=== PATIENT | male | born 1990 | race Native Hawaiian/Other Pacific Islander ===

== ENCOUNTER 2020-06-09 01:16 | Emergency (ER) | payer OTHER ==
[~2020-06-09] VITALS: Ht 170.2 cm; Wt 68.0 kg
[2020-06-09 01:28] VITALS: BP 117/78
== END 2020-06-09 02:03 | disposition home or self-care (01) ==
LOC: ER 01:20
DX: Z13.89 Encounter for screening for other disorder (principal); Z20.822 Contact with and (suspected) exposure to COVID-19
CPT/HCPCS: 99283; C9803; U0003

== ENCOUNTER 2020-06-20 02:42 | Emergency (ER) | payer OTHER ==
[~2020-06-20] VITALS: Ht 170.2 cm; Wt 68.0 kg
[2020-06-20 02:43] VITALS: BP 119/67
== END 2020-06-20 03:49 | disposition home or self-care (01) ==
LOC: ER 02:43
DX: Z20.822 Contact with and (suspected) exposure to COVID-19 (principal)
CPT/HCPCS: 99283; C9803; U0003

== ENCOUNTER 2020-06-28 23:19 | Emergency (ER) | payer OTHER ==
[~2020-06-28] VITALS: Ht 170.2 cm; Wt 68.0 kg
[2020-06-28 23:21] VITALS: BP 125/86
== END 2020-06-28 23:50 | disposition home or self-care (01) ==
LOC: ER 23:20
DX: Z20.822 Contact with and (suspected) exposure to COVID-19 (principal)
CPT/HCPCS: 99283; C9803; U0003

== ENCOUNTER 2020-07-02 16:40 | Emergency (ER) | payer OTHER ==
[~2020-07-02] VITALS: Ht 170.2 cm; Wt 68.0 kg
[2020-07-02 16:43] VITALS: BP 135/91
--- NOTE | 2020-07-02 16:59 | NUR ---
COVIDM SWAB DONE AND SENT TO LAB
--- NOTE | 2020-07-02 16:59 | NUR ---
Patient discharged to home in stable condition. Written and verbal after care instructions given. Patient verbalizes understanding of instruction. Pt ambulatory with a steady gait
== END 2020-07-02 16:59 | disposition home or self-care (01) ==
LOC: ER 16:42
DX: Z20.822 Contact with and (suspected) exposure to COVID-19 (principal); Z53.8 Procedure and treatment not carried out for other reasons

== ENCOUNTER 2020-07-09 23:43 | Emergency (ER) | payer OTHER ==
[~2020-07-09] VITALS: Ht 170.2 cm; Wt 68.0 kg
[2020-07-09 23:44] VITALS: BP 122/78
--- NOTE | 2020-07-09 23:57 | NUR ---
COVID TEST SENT T
== END 2020-07-09 23:58 | disposition home or self-care (01) ==
LOC: ER 23:45
DX: Z20.822 Contact with and (suspected) exposure to COVID-19 (principal)
CPT/HCPCS: 99283; C9803; U0003

== ENCOUNTER 2020-07-18 04:51 | Emergency (ER) | payer OTHER ==
[~2020-07-18] VITALS: Ht 170.2 cm; Wt 68.0 kg
[2020-07-18 04:52] VITALS: BP 119/69
== END 2020-07-18 05:08 | disposition home or self-care (01) ==
LOC: ER 04:52
DX: Z20.822 Contact with and (suspected) exposure to COVID-19 (principal)
CPT/HCPCS: 99283; C9803; U0003

== ENCOUNTER 2020-07-25 04:17 | Emergency (ER) | payer OTHER ==
[~2020-07-25] VITALS: Ht 170.2 cm; Wt 68.0 kg
[2020-07-25 04:17] VITALS: BP 123/75
== END 2020-07-25 05:12 | disposition home or self-care (01) ==
LOC: ER 04:19
DX: Z20.822 Contact with and (suspected) exposure to COVID-19 (principal)
CPT/HCPCS: 99283; C9803; U0003

== ENCOUNTER 2020-08-08 01:21 | Emergency (ER) | payer OTHER ==
[~2020-08-08] VITALS: Ht 170.2 cm; Wt 68.0 kg
[2020-08-08 01:21] VITALS: BP 123/75
== END 2020-08-08 01:30 | disposition home or self-care (01) ==
LOC: ER 01:21
DX: Z20.822 Contact with and (suspected) exposure to COVID-19 (principal)
CPT/HCPCS: 99283; C9803; U0003

== ENCOUNTER 2020-08-23 02:40 | Emergency (ER) | payer OTHER ==
[~2020-08-23] VITALS: Ht 170.2 cm; Wt 68.0 kg
[2020-08-23 02:41] VITALS: BP 123/65
== END 2020-08-23 03:08 | disposition home or self-care (01) ==
LOC: ER 02:42
DX: Z20.822 Contact with and (suspected) exposure to COVID-19 (principal)
CPT/HCPCS: 99283; C9803; U0003

== ENCOUNTER 2020-09-19 00:01 | Emergency (ER) | payer OTHER ==
[~2020-09-19] VITALS: Ht 170.2 cm; Wt 68.0 kg
[2020-09-19 00:15] VITALS: BP 128/67
== END 2020-09-19 00:28 | disposition home or self-care (01) ==
LOC: ER 00:02
DX: Z20.822 Contact with and (suspected) exposure to COVID-19 (principal)
CPT/HCPCS: 99283; C9803; U0003

== ENCOUNTER 2021-01-08 21:58 | Inpatient (IN) | payer MEDICAID, OTHER ==
[~2021-01-08] VITALS: Ht 167.6 cm; Wt 69.4 kg
--- NOTE | 2021-01-08 22:21 | NUR ---
URINE SENT TO LAB
[2021-01-08] MEDS ORDERED: IV NS 0.9% 1,000 ML BAG IV ONE (22:30)
--- NOTE | 2021-01-08 22:30 | NUR ---
MD AT BEDSIDE ALONG WITH RN FOR CONSENT TO TEST FOR DRUGS AND ALCOHOL AND TO SHARE RESULTS WITH NURSING ADMINISTRATION
[2021-01-08 22:43] LABS: BILIRUBIN,URINE Negative (NEGATIVE); COLOR,URINE YELLOW (YELLOW); LEUKOCYTE ESTERASE ,URINE Negative (NEGATIVE); NITRITE, URINE Negative (NEGATIVE); PH,URINE 5.5 (5.0-8.0); PROTEIN,URINE Negative (NEGATIVE); UGLUCOSE Negative (NEGATIVE); UROBILINOGEN,URINE 0.2 EU/dL (0.2)
[2021-01-08 22:48] LABS: BASOPHILS % (AUTO) 0.6 % (0.0-2.0); EOSINOPHILS % (AUTO) 2.5 % (0.0-6.0); HEMATOCRIT 41 % (39-51); HEMOGLOBIN 13.9 g/dL (13.5-17.5); LYMPHOCYTES # (AUTO) 1.3 K/uL (0.8-4.8); LYMPHOCYTES % (AUTO) 18.4 % (20.0-44.0); MEAN CORPUSCULAR HGB CONC 34 g/dl (31.0-36.0); MEAN CORPUSCULAR VOLUME 95 fL (80-96); MONOCYTES # (AUTO) 0.8 K/uL (0.1-1.30); NEUTROPHILS # (AUTO) 4.6 K/uL (1.8-8.9); NEUTROPHILS % (AUTO) 66.5 % (43.0-81.0); PLATELET COUNT (AUTO) 319 K/uL (150-450); RED BLOOD CELL COUNT(AUTO) 4.32 MIL/uL (4.5-6.0); WHITE BLOOD COUNT (AUTO) 6.9 K/uL (4.3-11.0)
--- NOTE | 2021-01-08 22:50 | NUR ---
PT BIBSELF C/O SYNCOPE AT WORK. PLACED ON MONITOR ON PULSE OX. AMBULATORY WITH NON LABORED BREATHING. -KO
[2021-01-08 23:20] LABS: CHLORIDE 107 mmol/L (98-107); POTASSIUM 3.7 mmol/L (3.5-5.1); SODIUM SERUM 141 mmol/L (136-145)
[2021-01-08 23:21] LABS: CALCIUM, SERUM 8.6 mg/dL (8.5-10.1); CARBON DIOXIDE 25 mmol/L (21-32); CREATININE 1.2 mg/dL (0.6-1.3); GLUCOSE 87 mg/dL (74-106); UREA NITROGEN, BLOOD 20 mg/dL (7-18)
--- NOTE | 2021-01-09 01:12 | NUR ---
CALLED XRAY TO F/U ON CT.
--- NOTE | 2021-01-09 01:20 | NUR ---
BROUGHT TO CT
--- NOTE | 2021-01-09 02:13 | NUR ---
called jose jackson
--- NOTE | 2021-01-09 02:16 | NUR ---
dr hernandez speaking with [place]
--- NOTE | 2021-01-09 02:27 | NUR ---
on speaking to hospitalist, Carter Vallejo.
[2021-01-09] MEDS ORDERED: LEVETIRACETAM (500MG) 500 MG in IV NS 0.9% 100 ML IV SCH (02:30)
[2021-01-09] MEDS ORDERED: LEVETIRACETAM (500MG) 500 MG/5 ML VIAL IV ONE (02:43)
[2021-01-09] MEDS ORDERED: Z GUARD REMEDY 2 OZ OINT TP PRN (03:00)
[2021-01-09] MEDS ORDERED: LORAZEPAM INJ 2 MG/ML VIAL IV PRN (03:00)
[2021-01-09] MEDS ORDERED: MAGNESIUM HYDROXIDE 30 ML UDC PO PRN (03:00)
[2021-01-09] MEDS ORDERED: ONDANSETRON HCL/PF 4 MG/2 ML VIAL IVP PRN (03:00)
--- NOTE | 2021-01-09 04:46 | NUR ---
Patient is resting comfortably in bed with eyes closed. Easily aroused. VSS
[2021-01-09] MEDS ORDERED: LEVE500T9 PO (08:14)
[2021-01-09] MEDS ORDERED: ZOLOFT (08:14)
[2021-01-09] MEDS ORDERED: LORA-259 PO (08:14)
[2021-01-09] MEDS ORDERED: GABA-536 PO (08:14)
[2021-01-09] MEDS ORDERED: PANTOPRAZOLE 40 MG VIAL IV SCH (09:00)
[2021-01-09] MEDS ORDERED: PANTOPRAZOLE 40 MG VIAL ONE (10:18)
--- NOTE | 2021-01-09 10:27 | NUR ---
PATIENT A/OX4, BREATHING EVEN AND UNLABORED, NO SOB NOTED. NEEDS ATTENDED.
--- NOTE | 2021-01-09 13:43 | NUR ---
room 320-1
--- NOTE | 2021-01-09 13:58 | NUR ---
REPORT GIVEN TO PHILIP SHEPHERD. PT AWAITING TRANSFER TO FLOOR.
--- NOTE | 2021-01-09 14:11 | NUR ---
PT TRANSPORTED TO UNIT ON [address] WITH EMT AND RN AT BEDSIDE WITH ACLS PROTOCOL. NAD NOTED DURING TRANSPORT. PT AMBULATED FROM GURNEY TO BED W/O ASSIST.
--- NOTE | 2021-01-09 15:00 | NUR ---
PRISON TEACHERLICENSE REGISTRATION EXAMINER NOTES RECEIVED PATIENT ADMISSION. PT IS ALERT AND ORIENTED X4. NO S/S OF DISTRESS NOTED. NO SOB. BREATHING IS EVEN AND UNLABORED. BODY ASSESSMENT DONE, SKIN IS INTACT. PT IS AN EMPLOYEE AND IS ORIENTED TO UNIT AND STAFF. PLACED EXTERNAL HOTEL ASSOCIATE ON PATIENT. SAFETY MEASURES IMPLEMENTED WITH BED LOCKED AT LOW POSITION AND SIDE RAILS UP X 2. CALL LIGHT IS WITHIN REACH. WILL CONTINUE TO MONITOR THROUGHOUT SHIFT.
[2021-01-09 16:00] VITALS: BP 129/81
[2021-01-09] MEDS: IV NS 0.9% 1,000 ML IV PRN (16:00)
[2021-01-09] MEDS: LEVETIRACETAM (500MG) 500 MG in IV NS 0.9% 100 ML IV SCH (16:00)
--- NOTE | 2021-01-09 19:22 | NUR ---
TELE CLOSING NOTES PATIENT IN IS BED WATCHING TV. NO S/S OF DISTRESS NOTED. NO SOB. NO C/O PAIN. ALL NEEDS MET THROUGHOUT SHIFT. IV ACCESS LFA#20 PATENT AND INTACT WITH NS 0.9% RUNNING AT 75MLS/HR. SAFETY MEASURES MAINTAINED. CALL LIGHT IS WITHIN REACH. WILL ENDORSE CONTINUITY OF CARE TO ONCOMING SHIFT.
[2021-01-09 20:00] VITALS: BP 111/65
--- NOTE | 2021-01-09 20:30 | NUR ---
INSPECTOR AND MENDER OPENING NOTES RECEIVED PT IN BED, WATCHING TV. AOx4. ABLE TO MAKE NEEDS KNOWN. ON RA AND TOLERATING WELL. NO SOB NOTED. NO S/SX OF RESPIRATORY DISTRESS NOTED. NO COMPLAINTS OF CHEST PAIN AT THIS TIME. IV ACCESS LFA#20 PATENT AND RUNNING NS RUNNING AT 75MLS/HR. SAFETY MEASURES IN PLACE: BED IN LOWEST, LOCKED POSITION, BRAKES ON, SIDERAILS UPx2. CALL LIGHT AND TABLE WITHIN REACH. WILL CONTINUE TO MONITOR. Addendum: 01/09/21 at 2033 by SONAL LOGAN RN TELE MONITOR DETECTS SINUS RHYTHM WITH RATE IN 90S.
--- NOTE | 2021-01-09 22:56 | NUR ---
REPORTS RECEIVED FROM CORA CURRY FOR CONTINUITY OF CARE. PATIENT IS ASLEEP AT THIS TIME.
[2021-01-10] VITALS: BP 107/60
[2021-01-10] MEDS: IV NS 0.9% 1,000 ML IV PRN (03:10)
[2021-01-10] MEDS: LEVETIRACETAM (500MG) 500 MG in IV NS 0.9% 100 ML IV SCH (03:10)
[2021-01-10 04:00] VITALS: BP 108/55
[2021-01-10 06:16] LABS: BASOPHILS % (AUTO) 0.6 % (0.0-2.0); EOSINOPHILS % (AUTO) 7.5 % (0.0-6.0); HEMATOCRIT 39 % (39-51); HEMOGLOBIN 13.5 g/dL (13.5-17.5); LYMPHOCYTES # (AUTO) 1.5 K/uL (0.8-4.8); LYMPHOCYTES % (AUTO) 27.8 % (20.0-44.0); MEAN CORPUSCULAR HGB CONC 34 g/dl (31.0-36.0); MEAN CORPUSCULAR VOLUME 95 fL (80-96); MONOCYTES # (AUTO) 0.8 K/uL (0.1-1.30); MONOCYTES % (AUTO) 14.4 % (2.0-12.0); NEUTROPHILS # (AUTO) 2.8 K/uL (1.8-8.9); NEUTROPHILS % (AUTO) 49.7 % (43.0-81.0); PLATELET COUNT (AUTO) 299 K/uL (150-450); RED BLOOD CELL COUNT(AUTO) 4.15 MIL/uL (4.5-6.0); WHITE BLOOD COUNT (AUTO) 5.5 K/uL (4.3-11.0)
[2021-01-10 06:30] LABS: CALCIUM, SERUM 7.9 mg/dL (8.5-10.1); CREATININE 0.9 mg/dL (0.6-1.3); MAGNESIUM 2.1 mg/dL (1.8-2.4); PHOSPHORUS 3.7 mg/dL (2.5-4.9); POTASSIUM 3.8 mmol/L (3.5-5.1)
[2021-01-10] MEDS ORDERED: PANTOPRAZOLE 40 MG TABLET.DR PO SCH (07:30)
--- NOTE | 2021-01-10 07:45 | NUR ---
RN OPENING NOTE PT AWAKE IN BED RESTING. ON RA WITH NO SOB OR RESPIRATORY DISTRESS PRESENT. A/O X4 AND POLISH SPEAKING. NO COMPLAINT OF PAIN OR NAUSEA PRESENT. ON LENS MATCHER. NO EDEMA PRESENT. SELF AMBULATORY WITH BATHROOM PRIVILEGES. SKIN IS INTACT. ON REGULAR DIET.IV PRESENT ON L AC 20 AND FLUSHES WELL. N/S RUNNING AT 75 ML/HR. LABS AND ORDERS REVIEWED. SAFETY MEASURES IN PLACE. SIDE RAILS RAISED. BED LOWERED. CALL LIGHT WITHIN REACH. WILL CONTINUE TO MONITOR.
[2021-01-10 08:00] VITALS: BP 133/85
--- NOTE | 2021-01-10 09:53 | NUR ---
LEATHER LEVELER NOTE PT DISCHARGED HOME. IN STABLE CONDITION. EXITCARE UTILIZED AND GIVEN TO PT. PRESCRIPTIONS CHECKED AND GIVEN TO PT. KEPPRA 500 MG BID. V/S CHECKED PRIOR TO D/C. SKIN IS INTACT. ID BAND REMOVED. IV BAND REMOVED. PT TRANSPORTED VIA PRIVATE CAR ACCOMPANIED BY FAMILY.
== END 2021-01-10 09:45 | disposition home or self-care (01) | DRG 48 ==
LOC: ER 22:01 → TRANSITION 01-09 02:44 → TELE 01-09 13:52
PROVIDERS: ADMIT Internal Medicine; ATTEND Internal Medicine
DX: G90.8 Other disorders of autonomic nervous system (principal); F41.9 Anxiety disorder, unspecified; Z20.822 Contact with and (suspected) exposure to COVID-19; T42.4X5A Adverse effect of benzodiazepines, initial encounter; Y92.89 Other specified places as the place of occurrence of the external cause
CPT/HCPCS: 36415; 70450-TC; 80048-TC; 82962-TC; 83735-TC; 84100-TC; 84484-TC; 85025-TC; 87081-TC; 93307-TC; 95819-TC; C9113; C9803; G0378; G0480; J1953; J2060; J2405; J7030

== ENCOUNTER 2021-03-29 00:41 | Emergency (ER) | payer MEDICAID, OTHER ==
[~2021-03-29] VITALS: Ht 170.2 cm; Wt 63.0 kg
[~2021-03-29 00:41] MED LIST: GABA-536 PO; LEVE500T9 PO; ZOLOFT
[2021-03-29 00:45] VITALS: BP 124/68
== END 2021-03-29 01:33 | disposition home or self-care (01) ==
LOC: ER 00:50
DX: Z20.822 Contact with and (suspected) exposure to COVID-19 (principal)
CPT/HCPCS: 99283; C9803; U0003